=== PATIENT | female | born 1965 | race Caucasian/White ===

== ENCOUNTER 2016-07-11 06:54 | Day surgery (SDC) | payer BC ==
[~2016-07-11] VITALS: Ht 167.6 cm; Wt 77.7 kg
[2016-07-11 07:26] VITALS: Ht 167.6 cm; Wt 77.7 kg
[2016-07-11] MEDS ORDERED: [UNRECOGNIZED DRUG - OTHER] (07:36)
[2016-07-11 07:56] VITALS: BP 129/75; RESP 20
[2016-07-11] MEDS ORDERED: LIDOCAINE 4% SOLUTION 50 ML BTL ONE (08:00)
--- NOTE | 2016-07-11 08:42 | GILP ---
DATE OF PROCEDURE: 07/11/2016 NAME OF PROCEDURE: Esophagogastroduodenoscopy. PREOPERATIVE DIAGNOSIS: The patient presenting with history of anemia, occult blood positive in the stools, history of HIV, rule out peptic ulcer disease, rule out opportunistic infections. POSTOPERATIVE DIAGNOSES: 1. Normal esophagus. 2. Minimal antral gastritis. 3. Fundic glands noted in the gastric fundus. 4. Duodenum normal. DESCRIPTION OF PROCEDURE: After the informed written consent was obtained, the patient was asked to lie on the left lateral side; 3 mg Versed and 50 mcg of fentanyl was given as intravenous anesthesi a. When the patient became somnolent, the Olympus video upper endoscope was introduced into the orophar ynx and then into the esophagus. Esophagus appeared normal day in the entirety. Scope at this time was advanced into the stomach. Several areas of erythema noted in the antrum of the stomach indica ting mild gastritis. Scope at this time was advanced into the duodenum. Entire duodenum up to the end of the third portion appeared normal with no duodenitis, no ulcer disease. Gastric fundus was e xamined which showed 2 small fundic glands. Biopsy was done from the antrum, the lesser curvature, and the fundus to rule out H. pylori infection. Scope at this time was withdrawn, no additional abn ormalities detected, and the procedure was terminated. PLAN: Recommend Pepcid 20 mg p.o. b.i.d. for 2 months. Dictated By: LUNA BAY/PERFECTO Conf#: [id number] DID#: [id number]
[2016-07-11] MEDS ORDERED: FENTAnyl 50 MCG/ML VIAL ONE (08:57)
[2016-07-11] MEDS ORDERED: MIDAZOLAM 1 MG/ML 2 ML INJ ONE ×3 (08:57)
--- NOTE | 2016-07-11 09:06 | GILP ---
DATE OF PROCEDURE: 07/11/2016 PROCEDURE: Colonoscopy. PREOPERATIVE DIAGNOSES: 1. History of occult gastrointestinal bleeding, rule out colorectal neoplasm, arteriovenous malform ation, diverticulosis, etc. 2. The patient also is known to have HIV. Rule out Kaposi's sarcoma. POSTOPERATIVE DIAGNOSIS: Minimal external hemorrhoids. DESCRIPTION OF PROCEDURE: After the informed written consent was obtained, the patient was asked to lie on the left lateral side; 5 mg Versed and 100 mcg of fentanyl was given as intravenous anesthes ia. When the patient became somnolent, the Olympus video colonoscope was introduced into the rectum, and scope was advanced all the way to the cecum. The entire colon appeared perfectly normal with no mu cosal abnormality. The cecum and appendiceal openings were identified. On the way out, no addition al abnormalities detected. Retroflexion was performed. Minimal skin tags were noted. On the way o ut, minimal external hemorrhoids were noted, and the procedure was terminated. PLAN: Recommend further workup as indicated. Dictated By: LUNA BAY/PERFECTO Conf#: [id number] DID#: [id number]
[2016-07-11 09:20] VITALS: BP 118/68; RESP 20
== END 2016-07-11 12:58 | disposition home or self-care (01) ==
LOC: GIL 06:54
PROVIDERS: ATTEND Internal Medicine Gastroenterology
DX: K29.30 Chronic superficial gastritis without bleeding (principal); K64.4 Residual hemorrhoidal skin tags
CPT/HCPCS: 43239; 45378; 88305; 88312; J2250; J3010; Z7610